=== PATIENT | female | born 1990 | race Caucasian/White ===

== ENCOUNTER 2022-06-04 14:52 | Observation (INO) | payer OTHER, SELFPAY ==
[~2022-06-04 14:52] MED LIST: Iopamidol-370 76% 500 ML 1 ML ONE
[2022-06-04] MEDS ORDERED: Ketorolac Tromethamine 30 MG/ML VIAL ONE (15:34)
[2022-06-04 15:35] LABS: #Eosinphils 0.3 thou/uL (0.0-0.7); #Lymphocytes 2.5 thou/uL (1.20-3.40); #Monocytes 0.6 thou/uL (0.11-0.59); #Neutrophils 4.1 thou/uL (1.40-6.50); %Basophils 0.6 % (0.0-1.0); %Eosinophils 3.9 % (0.0-10.0); %Lymphocytes 32.8 % (21.0-51.0); %Neutrophils 54.6 % (42.0-75.0); Hemoglobin 13.9 g/dL (12.0-16.0); Mean Corpuscular HGB CONC 34.7 g/dL (32.0-36.0); Mean Corpuscular Hemoglobin 33.4 pg (27.0-31.0); Mean Platelet Volume 6.7 fL (7.4-10.4); Platelet Count 265 10x3/uL (130-400); RBC Distribution Width 11.5 % (11.5-14.5); Red Blood Cell (RBC) Count 4.17 mill/uL (4.20-5.40); White Blood Cell (WBC) Count 7.5 10x3/uL (4.8-10.8)
[2022-06-04 15:56] LABS: ALT (SGPT) 12 U/L (8-55); AST (SGOT) 16 U/L (5-34); Albumin 4.3 g/dL (3.5-5.0); Alkaline Phosphatase 58 U/L (40-110); Anion Gap 11 mmol/L (10-20); BUN (Urea Nitrogen) 8 mg/dL (7.0-18.7); Bilirubin, Total 0.7 mg/dL (0.2-1.2); Calc. Creatinine Clearance 0 mL/min (70-130); Carbon Dioxide 25 mmol/L (22-29); Chloride 104 mmol/L (98-107); Estimated GFR 106; Glucose 88 mg/dL (70-105); Lipase 27 U/L (8-78); Potassium 3.7 mmol/L (3.5-5.1); Protein, Total 7.3 g/dL (6.0-8.3); Sodium 136 mmol/L (136-145)
[2022-06-04 16:24] LABS: BHCG - Serum Negative (NEGATIVE); Pregs Control Background? CLEAR/WHITE (CLR/WHITE); Pregs Control Bar Appear? YES (CONTROL BAR)
[2022-06-04 16:35] LABS: Bilirubin Negative (Negative); Blood, Urine Negative (Negative); Clarity Clear (Clear); Glucose, Urine (Dipstick) Normal (Negative); Ketone, Urine Negative (Negative); Leukocyte Negative Leu/uL (Negative); Nitrite Negative (Negative); Protein, Urine (Dipstick) Negative (Neg-Trace); Specific Gravity, Urine 1.009 (1.002-1.036); Urobilinogen Normal mg/dL (Less than 2)
[2022-06-04 19:47] LABS: SARS-CoV-2 NAA Rapid Test Not Detected (NotDetected)
[2022-06-04] MEDS ORDERED: fentaNYL PF 100 MCG/2 ML SYRINGE ONE (21:20)
[2022-06-04] MEDS ORDERED: Midazolam HCl 2 mg/2 ml Vial ONE (21:20)
[2022-06-04] MEDS ORDERED: Bupivacaine/Epinephrine 0.25% 30 ML VIAL ONE (21:38)
[2022-06-04] MEDS ORDERED: SUGAMMADEX SODIUM 200 MG/2 ML VIAL ONE (21:40)
[2022-06-04] MEDS ORDERED: Lidocaine 1% PF 5 ML VIAL ONE (22:10)
[2022-06-04] MEDS ORDERED: Ondansetron PF 4 MG/2 ML Vial ONE (22:10)
[2022-06-04] MEDS ORDERED: PROPOFOL 200 MG/20 ML VIAL ONE (22:10)
[2022-06-04] MEDS ORDERED: Rocuronium Bromide 10 MG/ML (10ML VIAL) ONE (22:10)
[2022-06-04] MEDS ORDERED: Dexamethasone 20 MG/5 ML VIAL ONE (22:10)
[2022-06-04] MEDS ORDERED: Morphine 2 MG/ML VIAL SLOW IVP PRN (22:51)
[2022-06-04] MEDS ORDERED: Acetaminophen 325 MG TAB PO PRN (22:51)
[2022-06-04] MEDS ORDERED: Promethazine HCl 25 MG/ML VIAL IM PRN (22:51)
[2022-06-04] MEDS ORDERED: hydrALAZINE 20 MG/ML VIAL SLOW IVP PRN (22:51)
[2022-06-04] MEDS ORDERED: Ondansetron PF 4 MG/2 ML Vial IVP PRN (22:51)
[2022-06-04] MEDS ORDERED: Ipratropium/Albuterol 3 ML NEB NEB PRN (22:51)
[2022-06-04] MEDS ORDERED: Famotidine/PF 20 mg/2ml Vial SLOW IVP SCH (23:00)
[2022-06-04] MEDS ORDERED: Bupivacaine 0.25% HCL 30 ML VIAL ONE (23:15)
[2022-06-04] MEDS ORDERED: FENTANYL 50 MCG/ML 1 ML VIAL ONE (23:59)
[2022-06-05 00:54] VITALS: BMI 28.5
[2022-06-05] MEDS: Ketorolac Tromethamine 30 MG/ML VIAL IVP SCH ×3 (01:22→15:04)
[2022-06-05] MEDS ORDERED: Famotidine/PF 20 mg/2ml Vial SLOW IVP SCH (09:00)
[2022-06-05] MEDS ORDERED: Famotidine 20 MG TAB PO SCH (09:00)
[2022-06-05] MEDS ORDERED: Polyethylene Glycol 3350 17 GM Packet PO SCH (09:00)
[2022-06-05] MEDS ORDERED: Senokot S 8.6-50 MG TAB PO SCH (09:00)
[2022-06-05] MEDS ORDERED: traMADol HCl 50 MG TAB PO PRN (10:29)
[2022-06-05] MEDS ORDERED: Acetaminophen 500 MG TAB PO SCH (11:00)
[2022-06-05] MEDS ORDERED: traMADol HCl 50 MG TAB PO SCH (12:00)
[2022-06-05 12:03] VITALS: BP 101/62; TEMP 97.1
== END 2022-06-05 15:07 | disposition home or self-care (01) ==
LOC: ERS 14:52 → SDC/OP 22:53 → SJJU 06-05 00:51
PROVIDERS: ADMIT Surgery; ATTEND Surgery
PROC: 0WQF0ZZ Repair Abdominal Wall, Open Approach (ICD-10-PCS; principal; 2022-06-04)
DX: K42.0 Umbilical hernia with obstruction, without gangrene (principal); N20.0 Calculus of kidney; Z20.822 Contact with and (suspected) exposure to COVID-19
CPT/HCPCS: 74177; 80053; 81003; 83690; 84703; 85025; 88302; 96374; J1100; J1885; J2250; J2405; J2704; J3010; S0028; U0002